=== PATIENT | female | born 1995 | race Caucasian/White ===

== ENCOUNTER 2018-01-21 18:11 | Inpatient (IN) | payer MEDICAID ==
[~2018-01-21 18:11] MED LIST: METHYLERGONOVINE 0.2 MG INJ
[2018-01-21] MEDS ORDERED: CARBOPROST 250 MCG INJ IM (19:30)
[2018-01-21] MEDS ORDERED: OXYTOCIN 30 UNITS/LR 500 ML IV (19:30)
[2018-01-21] MEDS ORDERED: OXYCODONE/ASPIRIN (4.88/325) TAB PO (19:30)
[2018-01-21] MEDS ORDERED: BUTORPHANOL 2 MG INJ IV (19:30)
[2018-01-21] MEDS ORDERED: MISOPROSTOL 200 MCG TAB PR (19:30)
[2018-01-21] MEDS: AMPICILLIN 2 GM/NS (PMX) 100 ML IV (20:04)
[2018-01-21] MEDS: LACTATED RINGER'S 1,000 ML IV (20:04)
[2018-01-21 20:33] LABS: ADD MAN DIFF? NO
[2018-01-21 20:38] LABS: ABNORMAL IP MESSAGE 1; BASOPHILS % 0.4 % (0.0-2.0); EOSINOPHILS % 0.4 % (0.0-7.0); HEMATOCRIT 26.8 % (37.0-47.0); HEMOGLOBIN 7.8 g/dl (12.0-16.0); LYMPHOCYTES # 1.6 10^3/ul (0.8-2.9); LYMPHOCYTES % 20.6 % (15.0-51.0); MEAN CORPUSCULAR HEMOGLOBIN 18.4 pg (29.0-33.0); MEAN CORPUSCULAR HGB CONC 29.1 g/dl (32.0-37.0); MEAN CORPUSCULAR VOLUME 63.4 fl (82.0-101.0); MONOCYTE # 0.6 10^3/ul (0.3-0.9); MONOCYTES % 7.6 % (0.0-11.0); NEUTROPHIL # 5.5 10^3/ul (1.6-7.5); NEUTROPHILS % 70.6 % (39.0-77.0); PLATELET COUNT 244 10^3/UL (140-415); RED BLOOD COUNT 4.23 10^6/ul (4.20-5.40)
[2018-01-21 20:38] LABS: WHITE BLOOD COUNT 7.9 10^3/ul (4.8-10.8)
[2018-01-21 20:41] LABS: POSITIVE DIFF @See below
[2018-01-21 20:54] LABS: INR 1.07; PT RATIO 1.1
[2018-01-21 20:55] LABS: PARTIAL THROMBOPLASTIN TIME 29.5 Sec (25.0-35.0)
[2018-01-21 21:08] LABS: AMPHETAMINE/METHAMPHETAMINE NEGATIVE (NEGATIVE); BARBITURATES NEGATIVE (NEGATIVE); BENZODIAZEPINES NEGATIVE (NEGATIVE); CANNABINOIDS NEGATIVE (NEGATIVE); COCAINE NEGATIVE (NEGATIVE); OPIATES NEGATIVE (NEGATIVE)
[2018-01-21] MEDS: OXYTOCIN 30 UNITS/LR 500 ML IV ×2 (21:16→21:38)
[2018-01-21] MEDS: LIDOCAINE 1% (MPF) 30 ML INJ INJ (21:17)
[2018-01-21] MEDS: MINERAL OIL LIGHT 10 ML VIAL TOP (21:18)
[2018-01-21 21:44] LABS: HEPATITIS B SURFACE ANTIGEN NEGATIVE (NEGATIVE)
[2018-01-21] MEDS: IBUPROFEN 600 MG TAB PO (21:53)
[2018-01-21] MEDS ORDERED: AMPICILLIN 1 GM/NS (PMX) 50 ML IV (23:30)
[2018-01-21] MEDS: METHYLERGONOVINE 0.2 MG INJ IM (23:45)
[2018-01-22] MEDS: OXYTOCIN 30 UNITS/LR 500 ML IV (00:02)
[2018-01-22] MEDS ORDERED: BENZOCAINE 20% 56 ML SPRAY TOP (00:30)
[2018-01-22] MEDS ORDERED: OXYTOCIN 30 UNITS/LR 500 ML IV (00:30)
[2018-01-22] MEDS ORDERED: WITCH HAZEL/GLYCERIN PAD PR (00:30)
[2018-01-22] MEDS ORDERED: DIBUCAINE 1% 30 GM OINT PR (00:30)
[2018-01-22] MEDS ORDERED: CARBOPROST 250 MCG INJ IM (00:30)
[2018-01-22] MEDS ORDERED: METHYLERGONOVINE 0.2 MG INJ IM (00:30)
[2018-01-22] MEDS ORDERED: MISOPROSTOL 200 MCG TAB PR (00:30)
[2018-01-22] MEDS ORDERED: HYDROCODONE/APAP (5/325) TAB PO (00:30)
[2018-01-22] MEDS ORDERED: ACETAMINOPHEN 325 MG TAB PO (00:30)
[2018-01-22 00:39] LABS: ADD MAN DIFF? NO
[2018-01-22 00:41] LABS: ABNORMAL IP MESSAGE 1; BASOPHILS % 0.2 % (0.0-2.0); EOSINOPHILS % 0.1 % (0.0-7.0); HEMATOCRIT 22.7 % (37.0-47.0); LYMPHOCYTES # 1.6 10^3/ul (0.8-2.9); LYMPHOCYTES % 10.6 % (15.0-51.0); MEAN CORPUSCULAR HEMOGLOBIN 18.3 pg (29.0-33.0); MEAN CORPUSCULAR HGB CONC 29.1 g/dl (32.0-37.0); MEAN CORPUSCULAR VOLUME 63.1 fl (82.0-101.0); MEAN PLATELET VOLUME 10.8 fl (7.4-10.4); MONOCYTES % 6.9 % (0.0-11.0); NEUTROPHIL # 12.2 10^3/ul (1.6-7.5); NEUTROPHILS % 81.7 % (39.0-77.0); PLATELET COUNT 233 10^3/UL (140-415); RED CELL DISTRIBUTION WIDTH 18.6 % (11.5-14.5)
[2018-01-22 00:49] LABS: HEMOGLOBIN 6.6 g/dl (12.0-16.0); POSITIVE DIFF @See below
[2018-01-22] MEDS: LACTATED RINGER'S 1,000 ML IV* ×2 (04:00→08:06)
[2018-01-22] MEDS: IBUPROFEN 600 MG TAB PO ×3 (06:21→17:37)
[2018-01-22 09:20] LABS: ADD MAN DIFF? NO
[2018-01-22 09:21] LABS: ABNORMAL IP MESSAGE 1; BASOPHILS % 0.3 % (0.0-2.0); EOSINOPHILS % 0.2 % (0.0-7.0); HEMATOCRIT 18.8 % (37.0-47.0); LYMPHOCYTES # 1.7 10^3/ul (0.8-2.9); LYMPHOCYTES % 16.8 % (15.0-51.0); MEAN CORPUSCULAR HEMOGLOBIN 18.6 pg (29.0-33.0); MEAN CORPUSCULAR HGB CONC 29.3 g/dl (32.0-37.0); MEAN CORPUSCULAR VOLUME 63.7 fl (82.0-101.0); MEAN PLATELET VOLUME 10.8 fl (7.4-10.4); MONOCYTE # 0.8 10^3/ul (0.3-0.9); MONOCYTES % 7.9 % (0.0-11.0); NEUTROPHIL # 7.4 10^3/ul (1.6-7.5); NEUTROPHILS % 74.3 % (39.0-77.0); PLATELET COUNT 221 10^3/UL (140-415); RED BLOOD COUNT 2.95 10^6/ul (4.20-5.40)
[2018-01-22 09:21] LABS: WHITE BLOOD COUNT 9.9 10^3/ul (4.8-10.8)
[2018-01-22 09:24] LABS: POSITIVE DIFF @See below
[2018-01-22 09:25] LABS: HEMOGLOBIN 5.5 g/dl (12.0-16.0)
[2018-01-22] MEDS: SENNA/DOCUSATE NA (8.6MG/50MG) TAB PO ×2 (10:33→20:25)
[2018-01-22 15:07] LABS: RAPID PLASMA REAGIN NONREACTIVE (NR)
[2018-01-22] MEDS: FERROUS SULFATE (EC) 325 MG TAB PO ×2 (16:15→20:25)
[2018-01-22] MEDS: PRENATAL VITAMIN PO (16:15)
[2018-01-23] MEDS: IBUPROFEN 600 MG TAB PO ×3 (00:27→12:01)
[2018-01-23] MEDS: PRENATAL VITAMIN PO (08:48)
[2018-01-23] MEDS: SENNA/DOCUSATE NA (8.6MG/50MG) TAB PO (08:48)
[2018-01-23] MEDS: FERROUS SULFATE (EC) 325 MG TAB PO (08:48)
[2018-01-23] MEDS: DIPHTH/TET/ACEL PERTUSS (ADULT) 0.5 ML VIAL IM* (08:48)
[2018-01-23 12:06] LABS: RUBELLA ANTIBODY - IGG 1.07 index
[2018-01-24 12:17] LABS: RUBELLA ANTIBODY - IGM <20.00 AU/mL
== END 2018-01-23 15:10 | disposition home or self-care (01) | DRG 775 ==
LOC: OBT 18:11 → L-D 18:13 → OBT 19:10 → L-D 19:10 → PP1 23:10
PROC: 10E0XZZ Delivery of Products of Conception, External Approach (ICD-10-PCS; principal; 2018-01-21)
PROC: 0HQ9XZZ Repair Perineum Skin, External Approach (ICD-10-PCS; 2018-01-21)
PROC: 3E033VJ Introduction of Other Hormone into Peripheral Vein, Percutaneous Approach (ICD-10-PCS; 2018-01-21)
DX: O71.4 Obstetric high vaginal laceration alone (principal); Z3A.38 38 weeks gestation of pregnancy; Z37.0 Single live birth
CPT/HCPCS: 76815; 80307; 82962; 85025; 85610; 85730; 86592; 86762; 86850; 86900; 86901; 87340